=== PATIENT | male | born 1960 | race Caucasian/White ===

== ENCOUNTER 2017-07-12 18:10 | Emergency (ER) | payer MEDICARE | END 2017-07-12 20:48 | disposition home or self-care (01) | LOC: D.ER 18:10 | DX: K04.7 Periapical abscess without sinus (principal); K02.9 Dental caries, unspecified; K08.89 Other specified disorders of teeth and supporting structures ==

== ENCOUNTER 2019-05-22 22:41 | Inpatient (IN) | payer MEDICARE, MEDICAID ==
[~2019-05-22] VITALS: Ht 180.3 cm; Wt 112.7 kg
[2019-05-22] MEDS ORDERED: ELIQUIS5 MG PO (22:47)
[2019-05-22] MEDS ORDERED: LISINOPRIL10 MG PO (22:47)
[2019-05-22] MEDS ORDERED: LASIX40 MG PO (22:48)
[2019-05-22 23:00] LABS: BASOPHILS 0.4 % (0-2); EOSINOPHILS 4.3 % (0-7); HEMATOCRIT 35.2 % (42.0-54.0); HEMOGLOBIN 10.8 g/dL (13.5-17.5); IMMATURE GRANULOCYTES 0.6 % (0-5); LYMPHOCYTES 22.6 % (15-50); MCH 25.4 pg (26.0-34.0); MCHC 30.7 g/dL (31.0-37.0); MCV 82.6 fL (80.0-100.0); MEAN PLATELET VOLUME 12.5 fL (7.4-10.4); MONOCYTES 6.4 % (2-11); NEUTROPHILS 65.7 % (40-80); PLATELET COUNT 195 10x3/uL (130-400); RBC 4.26 10x6/uL (4.20-6.10); RDW 15.2 % (11.5-14.5); WBC 8.4 10x3/uL (4.8-10.8)
[2019-05-22 23:11] LABS: APTT 35.2 SECONDS (22.8-39.4); INR 1.29 (0.85-1.17); PROTIME 15.6 SECONDS (11.6-15.0)
[2019-05-22 23:12] LABS: CALC OSMOLALITY 286 mosm/kg (275-300); CARBON DIOXIDE 26.8 mmol/L (21.0-32.0); CHLORIDE - SERUM 103 mmol/L (98-107); CREATININE - SERUM 0.9 mg/dL (0.6-1.3); GLUCOSE 245 mg/dL (74-106); POTASSIUM - SERUM 4.3 mmol/L (3.5-5.1); SODIUM 139 mmol/L (136-145); UREA NITROGEN 15 mg/dL (7-18); eGFR NON AFRICAN AMERICAN > 90 mL/min (90-120)
[2019-05-22 23:28] LABS: ALBUMIN 3.3 g/dL (3.4-5.0); ALKALINE PHOSPHATASE 146 U/L (46-116); ALT (SGPT) 29 U/L (10-68); BILIRUBIN - TOTAL 0.35 mg/dL (0.2-1.3); CREATINE KINASE 177 UL (21-232); PRO BNP 1287 pg/mL (0-125); PROTEIN - SERUM 7.7 g/dL (6.4-8.2)
[2019-05-22 23:29] LABS: TROPONIN-I < 0.017 ng/mL (0.000-0.060)
[2019-05-23 00:15] VITALS: BP 111/67
--- NOTE | 2019-05-23 00:41 | NUR ---
PAUSED CARDIZEM DRIP D/T INFILTRATION OF IV SITE. DC'D IV IN R FOREARM. CATHETER INTACT. APPLIED PRESSURE WITH 2X2 GAUZE AND TAPE.
--- NOTE | 2019-05-23 00:54 | NUR ---
IV SITE IN R FOREARM INFILTRATED. DC'D IV. CATHETER INTACT. APPLIED PRESSURE WITH 2X2 GAUZE AND TAPE. PAUSED LEVOQUIN UNTIL NEW IV CAN BE PLACED.
[2019-05-23 02:39] VITALS: BP 133/75; BMI 34.6
[2019-05-23 09:06] VITALS: BP 139/82
[2019-05-23 11:33] VITALS: Ht 180.3 cm; Wt 112.7 kg
[2019-05-23 13:16] VITALS: BP 157/100
[2019-05-23 13:48] LABS: % SATURATION 7 % (15-55); IRON 32 ug/dl (35-150); TOTAL IRON BIND CAPACITY 445 ug/dl (260-445); UNSAT IRON BIND CAPACITY 413 ug/dl (150-375)
--- NOTE | 2019-05-23 14:15 | NUR ---
FAMILY SHOWS UP AND PT STATES HE WANTS TO LEAVE. EXPLAINED HE WOULD HAVE TO SIGN AMA FORM. ASKED WHY HE HAS TO STAY ANOTHER NIGHT. EXPLANED THAT HE WAS STRTED ON A NEW MEDICATION FOR FIB AND HE HE WAS STILL ON A DRIP FOR A-FIB AND THAT HE WAS ST RUNNING [facility] ON TH MONITOR. STATES HE FEELS WORSE THAN HE DID WHEN HE CAME IN. ELSY DWYER NOTIFIED AND SHE CAME TO BS AND EXPLAINED THE RISK OF STROKE. PT STATES HE STILL WANTS TO GO HOME WITH HIS FAMILY. IV AND TELEMETRY DCD AND HE LEAVES DIRECTLY.
== END 2019-05-23 14:33 | disposition left against medical advice (07) | DRG 193 ==
LOC: D.ER 22:41 → D.M2 05-23 00:11
PROVIDERS: Family Medicine; ADMIT Internal Medicine Nephrology; ATTEND Internal Medicine Nephrology
DX: J18.1 Lobar pneumonia, unspecified organism (principal); I50.31 Acute diastolic (congestive) heart failure; F17.213 Nicotine dependence, cigarettes, with withdrawal; I48.91 Unspecified atrial fibrillation; D64.9 Anemia, unspecified; I11.0 Hypertensive heart disease with heart failure; E11.9 Type 2 diabetes mellitus without complications; I25.10 Atherosclerotic heart disease of native coronary artery without angina pectoris; F15.10 Other stimulant abuse, uncomplicated